=== PATIENT | male | born 1970 | race Caucasian/White ===

== ENCOUNTER 2017-02-16 12:02 | Inpatient (IN) | payer BC ==
[2017-02-16] MEDS ORDERED: DILAUDID INJ IVP PRN (13:05)
[2017-02-16] MEDS: ZOFRAN INJ 4 MG VIAL IVP PRN ×2 (13:34→18:09)
[2017-02-16] MEDS: LR 1000 ML IV 1,000 ML IV SCH (13:35)
[2017-02-16] MEDS: LEVAQUIN PREMIX IV 750 MG 750 MG/150 ML BAG IV SCH (13:35)
[2017-02-16] MEDS: FLAGYL IV PREMIX 500 MG BAG 500 MG/100 ML BAG IV SCH ×2 (13:35→21:54)
[2017-02-16 13:36] LABS: BASOPHILS # (AUTO) 0.1 X10^3/uL (0.0-0.1); BASOPHILS % (AUTO) 0.8 % (0.2-1.0); EOSINOPHILS # (AUTO) 0.2 x10^3/uL (0.0-0.2); EOSINOPHILS % (AUTO) 1.4 % (0.9-2.9); HEMATOCRIT 42.3 % (42.0-54.0); HEMOGLOBIN 14.6 g/dL (13.5-18.0); LYMPHOCYTES # (AUTO) 2.6 X10^3/uL (1.3-2.9); MEAN CORPUSCULAR HEMOGLOBIN 31.3 pg (27.0-34.0); MEAN CORPUSCULAR HGB CONC 34.5 g/dL (33.0-35.0); MEAN CORPUSCULAR VOLUME 90.7 fL (80.0-100.0); MEAN PLATELET VOLUME 8.4 fL (7.4-11.0); MONOCYTES # (AUTO) 1.2 x10^3/uL (0.3-0.8); MONOCYTES % (AUTO) 9.7 % (0.0-13.0); NEUTROPHILS # (AUTO) 8.2 x10^3/uL (2.2-4.8); NEUTROPHILS % (AUTO) 67.1 % (42.0-75.0); PLATELET COUNT 198 X10^3/uL (150.0-450.0); RED BLOOD COUNT 4.66 X10^6/uL (4.7-6.0); RED CELL DISTRIBUTION WIDTH 13.8 % (11.6-16.5); WHITE BLOOD COUNT 12.3 X10^3/uL (3.6-10.0)
[2017-02-16 14:00] VITALS: BMI 32.1
[2017-02-16 14:01] LABS: ALANINE AMINOTRANSFERASE 35 Units/L (12-78); ALBUMIN 3.8 g/dL (3.4-5.0); ALKALINE PHOSPHATASE 60 Units/L (46-116); ASPARTATE AMINO TRANSFERASE 14 Units/L (15-37); BLOOD UREA NITROGEN 19 mg/dL (7-18); CALCIUM 9.3 mg/dL (8.5-10.1); CARBON DIOXIDE 27.7 mmol/L (21-32); CHLORIDE 103 mmol/L (98-107); COR NA(FOR HYPERGLY) 139 mmol/L (136-145); CREATININE 1.35 mg/dL (0.70-1.30); SODIUM 138 mmol/L (136-145); eGFR BLACK RACES > 60 (>60); eGFR NON BLACK RACES > 60 (>60)
[2017-02-16] MEDS ORDERED: DILAUDID INJ ONE (16:42)
[2017-02-16] MEDS: DILAUDID INJ IVP PRN (16:45)
--- NOTE | 2017-02-16 17:40 | CT ---
CT abdomen and pelvis with contrast Indication: Left lower quadrant pain, nausea and vomiting Comparison: 06/18/2016 Technique: CT images of the abdomen and pelvis were obtained after IV oral contrast administration. A utomatic exposure control was utilized. Findings: Mild bilateral femoral head osteonecrosis, left greater than right, without cortical collap se. No acute skeletal abnormality. The lung bases are essentially clear. The liver, gallbladder, spleen, stomach, duodenum, pancreas, adrenals, and kidneys are unremarkable a side from a simple right renal cyst. Multiple colonic diverticula are noted with thickening and adjac ent fat stranding involving a short segment of the proximal sigmoid colon. No discrete pericolonic co llection or gross free air. The remaining lower GI tract, including the appendix, is unremarkable. Th e urinary bladder, prostate, and rectum are unremarkable. No free fluid or adenopathy identified. Impression: Acute uncomplicated diverticulitis of the sigmoid colon. Bilateral femoral head osteonecrosis, without cortical collapse Reported By:
[2017-02-16] MEDS ORDERED: PROTONIX INJ 40 MG VIAL IVP ONE (18:22)
[2017-02-16] MEDS: PHENERGAN INJ 25 MG IV PRN (19:35)
[2017-02-17] MEDS: LR 1000 ML IV 1,000 ML IV SCH ×2 (02:57→14:17)
[2017-02-17] MEDS: FLAGYL IV PREMIX 500 MG BAG 500 MG/100 ML BAG IV SCH ×4 (02:57→21:31)
[2017-02-17] MEDS: LEVAQUIN PREMIX IV 750 MG 750 MG/150 ML BAG IV SCH (09:32)
[2017-02-17] MEDS ORDERED: TORADOL 30 MG VIAL IVP PRN (09:38)
[2017-02-17] MEDS: PHENERGAN INJ 25 MG IV PRN ×2 (12:12→19:59)
[2017-02-17] MEDS ORDERED: STERILE WATER IRRIGATION IR ONE (14:07)
[2017-02-17] MEDS: DILAUDID INJ IVP PRN (19:54)
[2017-02-18] MEDS: FLAGYL IV PREMIX 500 MG BAG 500 MG/100 ML BAG IV SCH ×2 (02:35→09:33)
[2017-02-18] MEDS: LR 1000 ML IV 1,000 ML IV SCH ×3 (02:35→06:31)
[2017-02-18 06:14] LABS: BASOPHILS % (AUTO) 0.6 % (0.2-1.0); EOSINOPHILS # (AUTO) 0.3 x10^3/uL (0.0-0.2); EOSINOPHILS % (AUTO) 3.7 % (0.9-2.9); HEMATOCRIT 39.2 % (42.0-54.0); HEMOGLOBIN 13.3 g/dL (13.5-18.0); LYMPHOCYTES # (AUTO) 2.8 X10^3/uL (1.3-2.9); MEAN CORPUSCULAR HEMOGLOBIN 31.2 pg (27.0-34.0); MEAN CORPUSCULAR VOLUME 91.5 fL (80.0-100.0); MEAN PLATELET VOLUME 8.9 fL (7.4-11.0); MONOCYTES # (AUTO) 0.6 x10^3/uL (0.3-0.8); MONOCYTES % (AUTO) 9.4 % (0.0-13.0); NEUTROPHILS # (AUTO) 3.1 x10^3/uL (2.2-4.8); NEUTROPHILS % (AUTO) 45.3 % (42.0-75.0); PLATELET COUNT 193 X10^3/uL (150.0-450.0); RED BLOOD COUNT 4.28 X10^6/uL (4.7-6.0); RED CELL DISTRIBUTION WIDTH 13.7 % (11.6-16.5); WHITE BLOOD COUNT 6.9 X10^3/uL (3.6-10.0)
[2017-02-18 06:52] LABS: ALANINE AMINOTRANSFERASE 28 Units/L (12-78); ALBUMIN 3.2 g/dL (3.4-5.0); ALKALINE PHOSPHATASE 51 Units/L (46-116); ASPARTATE AMINO TRANSFERASE 9 Units/L (15-37); BLOOD UREA NITROGEN 21 mg/dL (7-18); CALCIUM 8.6 mg/dL (8.5-10.1); CARBON DIOXIDE 29.5 mmol/L (21-32); CHLORIDE 108 mmol/L (98-107); COR CA(FOR HYPOALB) 9.2 mg/dL (8.5-10.1); COR NA(FOR HYPERGLY) 143 mmol/L (136-145); CREATININE 1.38 mg/dL (0.70-1.30); SODIUM 142 mmol/L (136-145); TOTAL PROTEIN 6.2 g/dL (6.4-8.2); eGFR BLACK RACES > 60 (>60); eGFR NON BLACK RACES 59 (>60)
[2017-02-18] MEDS: DILAUDID INJ IVP PRN (07:39)
[2017-02-18] MEDS: PHENERGAN INJ 25 MG IV PRN (07:39)
[2017-02-18] MEDS: LEVAQUIN PREMIX IV 750 MG 750 MG/150 ML BAG IV SCH (09:33)
[2017-02-18 12:06] VITALS: BP 102/58
== END 2017-02-18 12:25 | disposition home or self-care (01) | DRG 392 ==
LOC: MED/SURG 12:02
PROVIDERS: ADMIT Obstetrics & Gynecology Obstetrics; ATTEND Obstetrics & Gynecology Obstetrics
DX: K57.32 Diverticulitis of large intestine without perforation or abscess without bleeding (principal); R10.32 Left lower quadrant pain; E11.9 Type 2 diabetes mellitus without complications; I10 Essential (primary) hypertension
CPT/HCPCS: 36415; 74177; 80053; 85025; A4216; A4217; A4222; C9113; S0030; J1170; J1885; J1956; J2405; J2550; J7120

== ENCOUNTER 2018-06-13 16:18 | Inpatient (IN) ==
[2018-06-13] MEDS ORDERED: PHENERGAN INJ 25 MG IV PRN (17:26)
[2018-06-13] MEDS ORDERED: PHARMACY CONSULT - VANCOMYCIN XX SCH (17:26)
[2018-06-13] MEDS ORDERED: TORADOL 30 MG VIAL ONE (17:28)
[2018-06-13] MEDS ORDERED: NS 1000 ML 1,000 ML ONE (17:34)
[2018-06-13 17:39] LABS: ABG BASE EXCESS 0.3 mmol/L (-2.0-2.0); ABG HCO3 24.6 mmol/L (22-26)
[2018-06-13] MEDS: TORADOL 30 MG VIAL IVP PRN ×2 (17:45→23:35)
[2018-06-13] MEDS: NS 1000 ML 1,000 ML IV SCH (17:52)
[2018-06-13 18:10] LABS: BASOPHILS % (AUTO) 0.3 % (0.2-1.0); EOSINOPHILS # (AUTO) 0.1 x10^3/uL (0.0-0.2); EOSINOPHILS % (AUTO) 1.4 % (0.9-2.9); HEMATOCRIT 44.8 % (42.0-54.0); HEMOGLOBIN 15.1 g/dL (13.5-18.0); LYMPHOCYTES # (AUTO) 1.9 X10^3/uL (1.3-2.9); LYMPHOCYTES % (AUTO) 20.2 % (21.0-51.0); MEAN CORPUSCULAR HEMOGLOBIN 31.5 pg (27.0-34.0); MEAN CORPUSCULAR HGB CONC 33.7 g/dL (33.0-35.0); MEAN CORPUSCULAR VOLUME 93.4 fL (80.0-100.0); MEAN PLATELET VOLUME 8.5 fL (7.4-11.0); MONOCYTES # (AUTO) 0.7 x10^3/uL (0.3-0.8); MONOCYTES % (AUTO) 7.7 % (0.0-13.0); NEUTROPHILS # (AUTO) 6.6 x10^3/uL (2.2-4.8); NEUTROPHILS % (AUTO) 70.4 % (42.0-75.0); PLATELET COUNT 242 X10^3/uL (150.0-450.0); RED BLOOD COUNT 4.79 X10^6/uL (4.7-6.0); RED CELL DISTRIBUTION WIDTH 13.2 % (11.6-16.5); WHITE BLOOD COUNT 9.4 X10^3/uL (3.6-10.0)
[2018-06-13 18:23] LABS: ALANINE AMINOTRANSFERASE 33 Units/L (12-78); ALBUMIN 3.6 g/dL (3.4-5.0); ALKALINE PHOSPHATASE 96 Units/L (46-116); ASPARTATE AMINO TRANSFERASE 9 Units/L (15-37); BLOOD UREA NITROGEN 19 mg/dL (7-18); CALCIUM 9.7 mg/dL (8.5-10.1); CARBON DIOXIDE 27.2 mmol/L (21-32); CHLORIDE 98 mmol/L (98-107); COR NA(FOR HYPERGLY) 144 mmol/L (136-145); CREATININE 1.63 mg/dL (0.70-1.30); SODIUM 134 mmol/L (136-145); TOTAL PROTEIN 7.1 g/dL (6.4-8.2); eGFR NON BLACK RACES 48 (>60)
[2018-06-13] MEDS: DEMEROL INJ IVP PRN ×2 (18:25→22:07)
[2018-06-13] MEDS ORDERED: ZESTRIL TAB 20 MG ONE (18:27)
[2018-06-13] MEDS: ZESTRIL TAB 20 MG PO SCH (18:36)
[2018-06-13] MEDS: HYDROCHLOROTHIAZIDE 12.5 MG CAP PO SCH (18:36)
[2018-06-13 18:38] LABS: BILIRUBIN,URINE NEGATIVE (NEGATIVE); BLOOD/HEMOGLOBIN,URINE NEGATIVE (NEGATIVE); GLUCOSE, URINE 4+ (NEGATIVE); KETONES,URINE NEGATIVE (NEGATIVE); LEUKOCYTE ESTERASE ,URINE NEGATIVE (NEGATIVE); NITRITES,URINE NEGATIVE (NEGATIVE); PROTEIN,URINE NEGATIVE (NEGATIVE); UROBILINOGEN,URINE NORMAL (NORMAL)
[2018-06-13 18:45] LABS: APPEARANCE,URINE CLEAR (CLEAR); COLOR,URINE PALE YELLOW (YELLOW)
[2018-06-13] MEDS: HumuLIN R SUBCUT PRN ×2 (18:45→20:49)
[2018-06-13] MEDS ORDERED: VANCOMYCIN HCL 500 MG VIAL 500 MG, VANCOMYCIN HCL 1 GM VIAL 1 G in D5W 250 ML IV 250 ML IV ONE (20:00)
[2018-06-13] MEDS ORDERED: VANCOMYCIN HCL 1 GM VIAL ONE (20:39)
[2018-06-13] MEDS ORDERED: VANCOMYCIN HCL 500 MG VIAL ONE (20:39)
[2018-06-13] MEDS ORDERED: D5W 250 ML IV 250 ML IV ONE (20:39)
[2018-06-14] MEDS: NS 1000 ML 1,000 ML IV SCH ×2 (05:10→19:41)
[2018-06-14 05:15] LABS: BASOPHILS % (AUTO) 0.4 % (0.2-1.0); EOSINOPHILS # (AUTO) 0.2 x10^3/uL (0.0-0.2); EOSINOPHILS % (AUTO) 1.6 % (0.9-2.9); HEMATOCRIT 41.1 % (42.0-54.0); HEMOGLOBIN 13.9 g/dL (13.5-18.0); LYMPHOCYTES # (AUTO) 2.7 X10^3/uL (1.3-2.9); LYMPHOCYTES % (AUTO) 27.8 % (21.0-51.0); MEAN CORPUSCULAR HEMOGLOBIN 31.5 pg (27.0-34.0); MEAN CORPUSCULAR HGB CONC 33.9 g/dL (33.0-35.0); MEAN PLATELET VOLUME 8.4 fL (7.4-11.0); MONOCYTES # (AUTO) 0.8 x10^3/uL (0.3-0.8); MONOCYTES % (AUTO) 8.5 % (0.0-13.0); NEUTROPHILS # (AUTO) 5.9 x10^3/uL (2.2-4.8); NEUTROPHILS % (AUTO) 61.7 % (42.0-75.0); PLATELET COUNT 227 X10^3/uL (150.0-450.0); RED BLOOD COUNT 4.42 X10^6/uL (4.7-6.0); RED CELL DISTRIBUTION WIDTH 13.5 % (11.6-16.5); WHITE BLOOD COUNT 9.6 X10^3/uL (3.6-10.0)
[2018-06-14 05:34] LABS: ALANINE AMINOTRANSFERASE 27 Units/L (12-78); ALKALINE PHOSPHATASE 64 Units/L (46-116); ASPARTATE AMINO TRANSFERASE 10 Units/L (15-37); BLOOD UREA NITROGEN 17 mg/dL (7-18); CALCIUM 8.3 mg/dL (8.5-10.1); CARBON DIOXIDE 27.2 mmol/L (21-32); CHLORIDE 104 mmol/L (98-107); COR CA(FOR HYPOALB) 9.1 mg/dL (8.5-10.1); COR NA(FOR HYPERGLY) 140 mmol/L (136-145); CREATININE 1.21 mg/dL (0.70-1.30); SODIUM 138 mmol/L (136-145); TOTAL PROTEIN 6.1 g/dL (6.4-8.2); eGFR NON BLACK RACES > 60 (>60)
[2018-06-14 06:01] LABS: ERYTHROCYTE SEDIMENTATION RATE 18 MM/HOUR (0-15)
[2018-06-14] MEDS: HumuLIN R SUBCUT PRN ×3 (06:04→21:05)
--- NOTE | 2018-06-14 06:12 | CT ---
HISTORY: Right-sided facial and neck cellulitis Study: CT head with and without contrast Comparison: None Technique: Axial pre and postcontrast images with coronal and sagittal reformats. Dose reduction procedures were used with mA/kv adjusted for body size. Findings: The ventricles are normal in size shape and position. There are no areas of abnormal attenuation or abnormal enhancement to suggest recent or remote CVA, hemorrhage, mass lesion, or extra-axial fluid collection. No definite vascular abnormality or anomaly is identified. The visualized sinuses are clear. The calvarium is intact. IMPRESSION: No significant abnormality identified Reported By:
--- NOTE | 2018-06-14 06:36 | CT ---
HISTORY: Right-sided facial and right neck cellulitis Study: CT soft tissue neck with contrast Comparison: None Technique: Axial post-contrast images with coronal and sagittal reformats. Dose reduction procedures were used with mA/kv adjusted for body size. Findings: There does not appear to be any significant skin thickening or subcutaneous soft tissue stranding in the area of the right side of the face or right side of the neck. The parotid glands appear symmetric in size and without evidence for inflammation. There is a 6.5 x 11.4 x 9 mm oblong soft tissue mass within the upper right parotid gland possibly a lymph node however neoplasm cannot be excluded. Ultrasound of this area may be helpful. The submandibular glands are symmetric and normal. No nasopharyngeal abnormality is identified. No definite or oropharyngeal abnormality is identified. The piriform sinuses are clear. No laryngeal abnormality is identified. The thyroid gland is normal. No supraclavicular or upper mediastinal lymphadenopathy of significance is identified. The lung apices are clear. No skeletal abnormality is identified. No definite enlarged anterior or posterior cervical chain lymphadenopathy is identified. Nonenlarged lymph nodes are identified in the posterior cervical chain on the right. No abnormal soft tissue masses are identified. No definite vascular abnormality is identified. IMPRESSION: No definite radiographic evidence for visible right facial or right neck cellulitis although mild changes of cellulitis may not be detectable. 6.5 x 11.4 x 9 mm oblong soft tissue mass in the upper right parotid gland possibly a lymph node. A neoplasm cannot be excluded. Ultrasound may be of further diagnostic value. Reported By:
[2018-06-14 06:39] VITALS: BMI 30.7
[2018-06-14] MEDS ORDERED: POTASSIUM CHL 40 MEQ/NS 0.45% 500 ML IV PRN (06:51)
[2018-06-14] MEDS ORDERED: POTASSIUM CHL 60 MEQ/NS 0.45% 500 ML IV PRN (06:51)
[2018-06-14] MEDS ORDERED: POTASSIUM CHLORIDE LIQ 20 MEQ UDC PO PRN (06:51)
[2018-06-14] MEDS ORDERED: MAGNESIUM SULFATE 1 GRAM/100 mL PREMIX 1 GM/100 ML BAG IV PRN (06:51)
[2018-06-14] MEDS ORDERED: K-DUR TAB 20 MEQ PO PRN (06:51)
[2018-06-14] MEDS ORDERED: MICRO K EXTEN CAP 10 MEQ PO PRN (06:51)
[2018-06-14] MEDS ORDERED: KLOR-CON PO PRN (06:51)
[2018-06-14] MEDS ORDERED: K-RIDER 10 MEQ/NS 100 ML 10 MEQ/100 ML BAG IV PRN (06:51)
[2018-06-14] MEDS: ZESTRIL TAB 20 MG PO SCH (08:27)
[2018-06-14] MEDS ORDERED: ZESTRIL TAB 20 MG ONE (08:27)
[2018-06-14] MEDS: HYDROCHLOROTHIAZIDE 12.5 MG CAP PO SCH (08:27)
[2018-06-14] MEDS: VANCOMYCIN HCL 1 GM VIAL 1 G in D5W 250 ML IV 250 ML IV SCH ×2 (08:48→21:04)
[2018-06-14] MEDS: TORADOL 30 MG VIAL IVP PRN ×2 (09:17→20:13)
[2018-06-14] MEDS: DEMEROL INJ IVP PRN ×3 (09:23→21:04)
--- NOTE | 2018-06-14 10:13 | DR.UPDATE ---
H&P Update History and Physical Update: PRESENTED TO [facility] OFFICE YESTERDAY WITH COMPLAINTS OF RIGHT EAR PAIN, SINUS DRAINAGE, AND FACIAL SWELLING THAT BEGAN 5 DAYS AGO. HE REPORTS FEVER AND CHILLS AT HOME. HE ALSO REPORTS A HISOTYR OF DIABETES, BUT REPORTS THAT HE HAS NOT TAKEN ANY MEDICATIONS IN OVER A YEAR DUE TO NOT HAVING INSURANCE. HIS HEMOGLOBIN A1C IN THE OFFICE WAS 12. HE WAS ADMITTED FOR FURTHER EVAULATION AND TREATMENT OF FACIAL CELLULITIS, RIGHT EAR CELLULITIS, AND UNCONTROLLED DIABETES. ON ADMISSION, LABS WERE OBTAINED. ABNORMAL LAB VALUES INCLUDE THE FOLLOWING: SODIUM 134, BUN 19, CREATININE 1.63, GLUCOSE 529, AST 9. A URINALYSIS WAS OBTAINED AND REVEALED: 4+ GLUCOSE, OTHERWISE UNREMARKABLE. ABG REVEALED: PH 7.420, PC02 38.0, P02 77.0, HC03 24.6, 02 SATURATION 95.0. A SOFT TISSUE NECK CT WAS OBTAINED AND REVEALED: No definite radiographic evidence for visible right facial or right neck cellulitis although mild changes of cellulitis may not be detectable. 6.5 x 11.4 x 9 mm oblong soft tissue mass in the upper right parotid gland possibly a lymph node. A neoplasm cannot be excluded. Ultrasound may be of further diagnostic value. A BRAIN CT WAS OBTAINED AND REVEALED: NO SIGNIFICANT ABNORMALITY. HE WAS STARTED ON NORMAL SALINE AT 125ML/HR, VANCOMYCIN 1GM IV Q12H, TORADOL 30MG IV Q6H PRN, DEMEROL 25MG IV Q4H PRN, PHENERGAN 25MG IV Q4H PRN, AND HUMULIN R SLIDING SCALE. WE PLAN TO FOLLOW UP WITH AM LABS AND CONTINUE TO MONITOR. Changes noted: NO Yes with the following:
[2018-06-14] MEDS ORDERED: PHARMACY CONSULT - DOSE _____ XX SCH (11:00)
[2018-06-14] MEDS: LEVAQUIN PREMIX IV 750 MG 750 MG/150 ML BAG IV SCH (13:15)
[2018-06-14] MEDS ORDERED: NS 100 ML IV 100 ML IV SCH (19:00)
[2018-06-14] MEDS ORDERED: NS 1000 ML 1,000 ML ONE (19:28)
[2018-06-15] MEDS: NS 1000 ML 1,000 ML IV SCH (04:51)
[2018-06-15 05:29] LABS: BASOPHILS % (AUTO) 0.6 % (0.2-1.0); EOSINOPHILS # (AUTO) 0.1 x10^3/uL (0.0-0.2); EOSINOPHILS % (AUTO) 1.8 % (0.9-2.9); HEMATOCRIT 39.9 % (42.0-54.0); HEMOGLOBIN 13.7 g/dL (13.5-18.0); LYMPHOCYTES # (AUTO) 2.6 X10^3/uL (1.3-2.9); LYMPHOCYTES % (AUTO) 32.1 % (21.0-51.0); MEAN CORPUSCULAR HEMOGLOBIN 31.3 pg (27.0-34.0); MEAN CORPUSCULAR HGB CONC 34.2 g/dL (33.0-35.0); MEAN CORPUSCULAR VOLUME 91.5 fL (80.0-100.0); MEAN PLATELET VOLUME 8.3 fL (7.4-11.0); MONOCYTES # (AUTO) 0.7 x10^3/uL (0.3-0.8); MONOCYTES % (AUTO) 8.3 % (0.0-13.0); NEUTROPHILS # (AUTO) 4.7 x10^3/uL (2.2-4.8); NEUTROPHILS % (AUTO) 57.2 % (42.0-75.0); PLATELET COUNT 210 X10^3/uL (150.0-450.0); RED BLOOD COUNT 4.36 X10^6/uL (4.7-6.0); RED CELL DISTRIBUTION WIDTH 13.3 % (11.6-16.5); WHITE BLOOD COUNT 8.1 X10^3/uL (3.6-10.0)
[2018-06-15] MEDS: HumuLIN R SUBCUT PRN ×2 (05:40→12:31)
[2018-06-15 05:52] LABS: ALANINE AMINOTRANSFERASE 33 Units/L (12-78); ALBUMIN 2.8 g/dL (3.4-5.0); ALKALINE PHOSPHATASE 60 Units/L (46-116); ASPARTATE AMINO TRANSFERASE 15 Units/L (15-37); BLOOD UREA NITROGEN 23 mg/dL (7-18); CALCIUM 8.5 mg/dL (8.5-10.1); CARBON DIOXIDE 25.6 mmol/L (21-32); CHLORIDE 106 mmol/L (98-107); COR CA(FOR HYPOALB) 9.5 mg/dL (8.5-10.1); COR NA(FOR HYPERGLY) 142 mmol/L (136-145); CREATININE 1.25 mg/dL (0.70-1.30); SODIUM 138 mmol/L (136-145); eGFR NON BLACK RACES > 60 (>60)
[2018-06-15] MEDS ORDERED: ZESTRIL TAB 20 MG ONE (08:19)
[2018-06-15] MEDS ORDERED: PHARMACY COMMENT IV NR (08:30)
[2018-06-15] MEDS: ZESTRIL TAB 20 MG PO SCH (08:57)
[2018-06-15] MEDS: HYDROCHLOROTHIAZIDE 12.5 MG CAP PO SCH (08:57)
[2018-06-15] MEDS: LEVAQUIN PREMIX IV 750 MG 750 MG/150 ML BAG IV SCH (08:57)
[2018-06-15] MEDS: DEMEROL INJ IVP PRN (09:04)
[2018-06-15] MEDS: CORTISPORIN OTIC SUSP RIGHT EAR SCH ×2 (10:45→12:31)
[2018-06-15] MEDS: VANCOMYCIN HCL 1 GM VIAL 1 G in D5W 250 ML IV 250 ML IV SCH (11:04)
[2018-06-15 11:10] LABS: CREATININE 1.22 mg/dL (0.70-1.30); VANCOMYCIN,TROUGH 6.4 ug/mL (15-20)
--- NOTE | 2018-06-15 12:02 | US ---
History: Right facial mass seen on CT examination of June 13 Study: Ultrasound of the right face and parotid Findings: There is a right neck hypoechoic nonvascular structure likely representing a lymph node measuring 8.8 mm by 1.54 cm maximum diameter. No abscess is demonstrated. Impression: Right neck prominent sized lymph node Reported By:
[2018-06-15 16:24] VITALS: BP 95/54
== END 2018-06-15 14:00 | disposition home or self-care (01) | DRG 603 ==
LOC: MED/SURG → OBSVTOIN 16:44
PROVIDERS: ADMIT Internal Medicine; ATTEND Internal Medicine
DX: E11.65 Type 2 diabetes mellitus with hyperglycemia; L03.211 Cellulitis of face; R22.1 Localized swelling, mass and lump, neck; I10 Essential (primary) hypertension; H60.11 Cellulitis of right external ear; R94.4 Abnormal results of kidney function studies
CPT/HCPCS: 36415; 36600; 70470; 70491; 76536; 80053; 80202; 81003; 82009; 82565; 82803; 83735; 85025; 85652; 86140; 87040; 87070; A4216; A4222; J1815; J1885; J1956; J2175; J2550; J3370; J7030; J7060